=== PATIENT | female | born 1970 | race Caucasian/White ===

== ENCOUNTER → 2019-01-01 08:30 | Day surgery (SDC) | payer BC ==
[~2019-01-01 08:30] MED LIST: Acetaminophen TAB* 325 MG PO PRN; Buffered Lidocaine 1% SYRIN* 1 ML/SYRINGE INTRADERM ONE; Bupivacaine 0.25% SDV PF* 10 ML VIAL INJ ONE; Dexamethasone IV* 4 MG/ML 1 ML (4 MG) IV SLOW PU ONE; Dexamethasone IV* 4 MG/ML 1 ML (4 MG) ONE; DiMENhydriNATE IV* 50 MG/ML VIAL IV PUSH PRN; Famotidine IV* 10 MG/ML 2 ML (20 mg) IV ONE; Famotidine IV* 10 MG/ML 2 ML (20 mg) ONE; HYDROcodone/ACETAMIN 5-325 MG* 1 TAB PO PRN; Ketorolac INJ* 30 MG/ML 1 ML VIAL IV PRN; Lactated Ringers 1000 ML Bag* 1,000 ML IV SCH; Lidocaine 1% w EPI 1:200,000* SDV 30 ML VIAL ONE; Lidocaine 2% PF * 5 ML VIAL ONE; Midazolam* 1 MG/ML 5 ML VIAL (5 MG) ONE; Naloxone* 0.4 MG/ML 1 ML VIAL IV PRN; Ondansetron INJ* 2 MG/ML VIAL ONE; Propofol* 10 MG/ML 20 ML BTL ONE; fentaNYL* 50 MCG/ML 2 ML VIAL (100 MCG VIAL) IV PRN; fentaNYL* 50 MCG/ML 2 ML VIAL (100 MCG VIAL) ONE; oxyCODONE TAB* 5 MG TAB PO PRN
--- NOTE | 2019-01-01 11:22 | BRIEFOPN ---
Brief Operative/Procedure Note - Operation Details Pre-Op Diagnosis: Left neck mass Post-Op Diagnosis: same as above Procedures: excision of left neck mass Surgeon(s)/Proceduralists: Dr. Allison; Assist: YOHAN Mcguire Anesthesia: MAC; Dr. Brady Estimated Blood Loss: <5ml; IV fluids: 850ml crystalloid Findings: Same as above Specimen(s)/Culture(s) Description: lipoma Complications: none
[2019-01-01 11:32] VITALS: BP 120/59
--- NOTE | 2019-01-01 21:19 | OP ---
CC: Primary Care Doctor, Laverne Draper NP * DATE OF OPERATION: 01/01/19 - [facility] DATE OF : 68 SURGEON: Gabino Allison MD SENIOR ELECTRICAL DESIGNER: DEEPTI Page student. ANESTHESIOLOGIST: Dr. Brady. ANESTHESIA: Local MAC anesthesia. PRE-OP DIAGNOSIS: Left neck mass. POST-OP DIAGNOSIS: Left neck mass consistent with lipoma. OPERATIVE PROCEDURE: Excision of left neck lipoma. ESTIMATED BLOOD LOSS: Minimal. SPECIMEN: Left neck mass consistent with lipoma. COMPLICATIONS: None. DESCRIPTION OF PROCEDURE: The patient was identified in the preoperative area. She was marked. Consent was signed. She was taken to the operating room and placed on the operating table in supine position. Gentle sedation was given. The patient's left neck was prepped and draped in standard surgical fashion. Time-out was performed. Injection of lidocaine at the proposed incision site and also along the mass was carried out. An incision was made and a subcutaneous lipoma was dissected from underlying structures and passed off as specimen. The wound was then irrigated. This did not violate the muscle, not even the platysma and we then reapproximated the skin with 3-0 Vicryl followed by 4-0 Monocryl subcuticular sutures. Steri-Strips and sterile dressing were applied. The patient tolerated the procedure well and was transferred to the PACU in stable condition. [id number]/[facility] #: [id number] [facility]
== END | disposition home or self-care (01) ==
LOC: OR 08:30
PROVIDERS: ATTEND Surgery
DX: D17.0 Benign lipomatous neoplasm of skin and subcutaneous tissue of head, face and neck (principal); F17.210 Nicotine dependence, cigarettes, uncomplicated; E03.9 Hypothyroidism, unspecified; K58.9 Irritable bowel syndrome, unspecified
CPT/HCPCS: 88304; J1100; J2001; J2250; J2405; J2704; J3010; J3490